=== PATIENT | female | born 1955 ===

== ENCOUNTER 2017-11-14 05:44 | Inpatient (IN) ==
[2017-11-14] MEDS ORDERED: ceFAZolin 1,000 MG VIAL ONE (06:10)
[2017-11-14] MEDS ORDERED: VANCOMYCIN 1,000 MG VIAL ONE (06:10)
[2017-11-14] MEDS ORDERED: VANCOMYCIN INJ 1,000 MG in SODIUM CHLORIDE 0.9% 250 ML IV ONE (06:30)
[2017-11-14] MEDS ORDERED: ceFAZolin 1,000 MG in SYRINGE 1 EACH IV ONE (06:30)
[2017-11-14] MEDS: LACTATED RINGERS 1,000 ML IV SCH (07:00)
[2017-11-14] MEDS ORDERED: DIAZEPAM 5 MG TABLET PO ONE (09:36)
[2017-11-14] MEDS ORDERED: FAMOTIDINE 20 MG TABLET PO ONE (09:36)
[2017-11-14] MEDS ORDERED: TRANEXAMIC ACID 1,000 MG/10 ML VIAL IV ONE (09:39)
[2017-11-14] MEDS ORDERED: FAMOTIDINE 20 MG TABLET ONE (09:50)
[2017-11-14] MEDS ORDERED: DIAZEPAM 5 MG TABLET ONE (09:50)
[2017-11-14] MEDS ORDERED: LACTULOSE 20 GM/30 ML UDCUP PO PRN (09:55)
[2017-11-14] MEDS ORDERED: PROMETHAZINE 25 MG/1 ML VIAL IM PRN (09:55)
[2017-11-14] MEDS ORDERED: BISACODYL 10 MG SUPP RECTAL PRN (09:55)
[2017-11-14] MEDS ORDERED: MAGNESIUM HYDROXIDE SUSP 30 ML UDCUP PO PRN (09:55)
[2017-11-14] MEDS ORDERED: TEMAZEPAM 7.5 MG CAPSULE PO PRN (09:55)
[2017-11-14] MEDS ORDERED: HYDROmorphone 2 MG/1 ML VIAL IV PRN (09:55)
[2017-11-14] MEDS ORDERED: diphenhydrAMINE CAP 25 MG CAPSULE PO PRN (09:55)
[2017-11-14] MEDS ORDERED: NALOXONE 0.4 MG/ML VIAL IV PRN (09:55)
[2017-11-14] MEDS ORDERED: ONDANSETRON 4 MG/2 ML VIAL IV PRN ×2 (09:55→12:07)
[2017-11-14] MEDS ORDERED: ZALEPLON 5 MG CAPSULE PO PRN (09:58)
[2017-11-14] MEDS ORDERED: ROPIVACAINE 0.5% 30 ML VIAL ONE (11:37)
[2017-11-14] MEDS: HYDROmorphone 2 MG/1 ML VIAL IV PRN ×3 (11:50→12:15)
[2017-11-14] MEDS ORDERED: fentaNYL 100 MCG/2 ML VIAL ONE (11:52)
[2017-11-14] MEDS ORDERED: ONDANSETRON 4 MG/2 ML VIAL ONE ×2 (11:53→11:54)
[2017-11-14] MEDS ORDERED: SEVOFLURANE 1 UNIT/15 MINUTE INH ONE (11:53)
[2017-11-14] MEDS ORDERED: MIDAZOLAM 2 MG/2 ML VIAL ONE (11:53)
[2017-11-14] MEDS ORDERED: PROPOFOL 200 MG/20 ML VIAL IV ONE (11:53)
[2017-11-14] MEDS ORDERED: HYDROmorphone PCA 30 MG/30 ML SYRINGE IV ONE (11:53)
[2017-11-14] MEDS ORDERED: HYDROmorphone 2 MG/1 ML VIAL ONE (11:53)
[2017-11-14] MEDS ORDERED: SUCCINYLCHOLINE 200 MG/10 ML VIAL ONE (11:54)
[2017-11-14] MEDS ORDERED: ACETAMINOPHEN 1,000 MG/100 ML VIAL IV ONE (11:54)
[2017-11-14] MEDS ORDERED: ROCURONIUM 100 MG/10 ML VIAL IV ONE (11:54)
[2017-11-14] MEDS: HYDROmorphone PCA 30 MG/30 ML SYRINGE IV SCH (12:00)
[2017-11-14 14:17] LABS: Basophils % 0.3 % (0.0-0.8); Eosinophils % 0.3 % (0.00-10.9); Hematocrit 38.6 VOL% (35.7-47.0); Hemoglobin 13.1 GM/DL (12.0-16.0); Immature Granulocytes % 0.3 %; Immature Granulocytes Absolute 0.04 #; Lymphocytes # 1.1 10*3/uL (1.4-4.0); Mean Corpuscular HGB Conc 33.9 GM/DL (32-36); Mean Corpuscular Hemoglobin 32 PG (27-34); Mean Platelet Volume 10.9 FL (9.6-12.0); Monocytes # 0.4 10*3/uL (0.11-0.8); Monocytes % 3.4 % (1.7-12.7); Neutrophils # 10.3 10*3/uL (1.4-7.4); Neutrophils % 86.7 % (38.7-73.9); Platelet Count 236 T/CUMM (130-400); Red Blood Count 4.15 MC/CUMM (3.8-5.5); Red Cell Distribution Width 12.8 % (9.3-17.3); White Blood Count 11.9 T/CUMM (4-12)
[2017-11-14 14:46] LABS: Calcium 8.7 MG/DL (8.5-10.1); Osmolality,Calculated 278.4 MOS/KG (273-304); Potassium 3.5 MMOL/L (3.5-5.1)
[2017-11-14] MEDS ORDERED: tiZANidine 4 MG TABLET PO PRN (17:02)
[2017-11-14] MEDS: ceFAZolin 1,000 MG in SYRINGE 1 EACH IV SCH (19:04)
[2017-11-14] MEDS ORDERED: tiZANidine 4 MG TABLET PO SCH (21:00)
[2017-11-14] MEDS: CIPROFLOXACIN 500 MG TABLET PO SCH (21:05)
[2017-11-14] MEDS: DOCUSATE SODIUM 100 MG CAPSULE PO SCH (21:05)
[2017-11-14] MEDS: AZELASTINE NASAL 137 MCG/SPRAY 30 ML BOTTLE BOTH NARES SCH (22:05)
[2017-11-14] MEDS: FONDAPARINUX 2.5 MG/0.5 ML SYRINGE SUBCUT SCH (22:05)
[2017-11-15] MEDS: ceFAZolin 1,000 MG in SYRINGE 1 EACH IV SCH (00:12)
[2017-11-15] MEDS: LACTATED RINGERS 1,000 ML IV SCH ×3 (00:13→20:03)
[2017-11-15 05:57] LABS: Basophils % 0.2 % (0.0-0.8); Immature Granulocytes % 0.5 %; Immature Granulocytes Absolute 0.05 #; Red Cell Distribution Width 12.4 % (9.3-17.3)
[2017-11-15 06:17] LABS: Eosinophils # 0.1 10*3/uL (0.0-0.87); Eosinophils % 0.8 % (0.00-10.9); Hematocrit 31.1 VOL% (35.7-47.0); Lymphocytes # 1.4 10*3/uL (1.4-4.0); Lymphocytes % 14.8 % (21.3-54.2); Mean Corpuscular HGB Conc 34.4 GM/DL (32-36); Mean Corpuscular Hemoglobin 32 PG (27-34); Mean Corpuscular Volume 91.7 FL (87-102); Mean Platelet Volume 11.4 FL (9.6-12.0); Monocytes # 0.8 10*3/uL (0.11-0.8); Monocytes % 8.3 % (1.7-12.7); Neutrophils # 7.3 10*3/uL (1.4-7.4); Neutrophils % 75.4 % (38.7-73.9); Platelet Count 217 T/CUMM (130-400); Red Blood Count 3.39 MC/CUMM (3.8-5.5); White Blood Count 9.7 T/CUMM (4-12)
[2017-11-15 06:19] LABS: Osmolality,Calculated 267.2 MOS/KG (273-304); Potassium 3.3 MMOL/L (3.5-5.1)
[2017-11-15 06:26] LABS: Hemoglobin 10.7 GM/DL (12.0-16.0)
[2017-11-15] MEDS: DOCUSATE SODIUM 100 MG CAPSULE PO SCH ×2 (08:14→20:03)
[2017-11-15] MEDS: PREGABALIN 75 MG CAPSULE PO SCH (08:14)
[2017-11-15] MEDS: AZELASTINE NASAL 137 MCG/SPRAY 30 ML BOTTLE BOTH NARES SCH ×2 (08:14→20:03)
[2017-11-15] MEDS: TOLTERODINE LA 4 MG CAPSULE PO SCH (08:14)
[2017-11-15] MEDS: CIPROFLOXACIN 500 MG TABLET PO SCH ×2 (08:14→20:03)
[2017-11-15] MEDS: HYDROmorphone PCA 30 MG/30 ML SYRINGE IV SCH (11:43)
[2017-11-15] MEDS: FONDAPARINUX 2.5 MG/0.5 ML SYRINGE SUBCUT SCH (21:47)
[2017-11-16] MEDS: LACTATED RINGERS 1,000 ML IV SCH (03:39)
[2017-11-16 05:36] LABS: Basophils % 0.2 % (0.0-0.8); Eosinophils # 0.3 10*3/uL (0.0-0.87); Eosinophils % 2.1 % (0.00-10.9); Hematocrit 27.6 VOL% (35.7-47.0); Hemoglobin 9.8 GM/DL (12.0-16.0); Immature Granulocytes % 0.4 %; Immature Granulocytes Absolute 0.05 #; Lymphocytes # 1.5 10*3/uL (1.4-4.0); Lymphocytes % 12.3 % (21.3-54.2); Mean Corpuscular HGB Conc 35.5 GM/DL (32-36); Mean Corpuscular Hemoglobin 32 PG (27-34); Mean Corpuscular Volume 89.6 FL (87-102); Mean Platelet Volume 11.5 FL (9.6-12.0); Monocytes % 8.3 % (1.7-12.7); Neutrophils # 9.3 10*3/uL (1.4-7.4); Neutrophils % 76.7 % (38.7-73.9); Platelet Count 211 T/CUMM (130-400); Red Blood Count 3.08 MC/CUMM (3.8-5.5); Red Cell Distribution Width 12.7 % (9.3-17.3); White Blood Count 12.1 T/CUMM (4-12)
[2017-11-16] MEDS: TOLTERODINE LA 4 MG CAPSULE PO SCH (08:49)
[2017-11-16] MEDS: CIPROFLOXACIN 500 MG TABLET PO SCH ×2 (08:49→20:42)
[2017-11-16] MEDS: AZELASTINE NASAL 137 MCG/SPRAY 30 ML BOTTLE BOTH NARES SCH ×2 (08:50→20:42)
[2017-11-16] MEDS: DOCUSATE SODIUM 100 MG CAPSULE PO SCH ×2 (08:50→20:41)
[2017-11-16] MEDS: PREGABALIN 75 MG CAPSULE PO SCH (08:50)
[2017-11-16] MEDS: FONDAPARINUX 2.5 MG/0.5 ML SYRINGE SUBCUT SCH (22:05)
[2017-11-17 07:24] VITALS: BP 107/60
[2017-11-17] MEDS: CIPROFLOXACIN 500 MG TABLET PO SCH (09:33)
[2017-11-17] MEDS: DOCUSATE SODIUM 100 MG CAPSULE PO SCH (09:33)
[2017-11-17] MEDS: TOLTERODINE LA 4 MG CAPSULE PO SCH (09:33)
[2017-11-17] MEDS: PREGABALIN 75 MG CAPSULE PO SCH (09:33)
[2017-11-17] MEDS: AZELASTINE NASAL 137 MCG/SPRAY 30 ML BOTTLE BOTH NARES SCH (09:34)
== END 2017-11-17 11:15 | disposition home health service (06) | DRG 470 ==
LOC: N.SDSINP 05:44 → N.3E 13:11
PROVIDERS: ADMIT Orthopaedic Surgery; ATTEND Orthopaedic Surgery

== ENCOUNTER 2022-06-07 05:25 | Inpatient (IN) ==
[2022-06-07] MEDS ORDERED: VANCOMYCIN INJ 1,000 MG in SODIUM CHLORIDE 0.9% 250 ML IV ONE (06:00)
[2022-06-07] MEDS ORDERED: propofoL 200 MG/20 ML VIAL IV ONE (06:16)
[2022-06-07] MEDS ORDERED: fentaNYL 100 MCG/2 ML VIAL ONE (06:16)
[2022-06-07] MEDS ORDERED: MIDAZOLAM 2 MG/2 ML VIAL ONE (06:16)
[2022-06-07] MEDS ORDERED: LIDOCAINE 2% 5 ML VIAL ONE (06:16)
[2022-06-07] MEDS ORDERED: DEXAMETHASONE 4 MG/1 ML VIAL ONE (06:24)
[2022-06-07] MEDS ORDERED: ROPIVACAINE 0.5% 30 ML VIAL ONE (06:25)
[2022-06-07] MEDS ORDERED: LIDOCAINE 1% 5 ML VIAL ONE (06:25)
[2022-06-07] MEDS: LACTATED RINGERS 1,000 ML IV SCH ×2 (06:30→08:01)
[2022-06-07 06:37] LABS: INR 0.9; PT Patient Result 10.3 SECS (10.1-12.1); Partial Thromboplastin Time 28.8 SECS (23.7-32.9)
[2022-06-07] MEDS ORDERED: BISACODYL 10 MG SUPP RECTAL PRN (07:05)
[2022-06-07] MEDS ORDERED: TEMAZEPAM 7.5 MG CAPSULE PO PRN (07:05)
[2022-06-07] MEDS ORDERED: diphenhydrAMINE CAP 25 MG CAPSULE PO PRN (07:05)
[2022-06-07] MEDS ORDERED: PROMETHAZINE 25 MG/1 ML VIAL IM PRN (07:05)
[2022-06-07] MEDS ORDERED: MORPHINE 2 MG/1 ML SYRINGE IV PRN ×3 (07:05→07:20)
[2022-06-07] MEDS ORDERED: LACTULOSE 20 GM/30 ML UDCUP PO PRN (07:05)
[2022-06-07] MEDS ORDERED: ONDANSETRON 4 MG/2 ML VIAL IV PRN ×2 (07:05→09:07)
[2022-06-07] MEDS ORDERED: MAGNESIUM HYDROXIDE SUSP 30 ML UDCUP PO PRN (07:05)
[2022-06-07] MEDS ORDERED: LOPERAMIDE 2 MG CAPSULE PO PRN (07:08)
[2022-06-07] MEDS ORDERED: ZOLPIDEM 10 MG PO PRN (07:08)
[2022-06-07] MEDS ORDERED: LORATADINE 10 MG TABLET PO PRN (07:08)
[2022-06-07] MEDS ORDERED: PHENYLEPHRINE 1 MG/10 ML SYRINGE IV ONE (07:28)
[2022-06-07] MEDS ORDERED: ONDANSETRON 4 MG/2 ML VIAL ONE (07:28)
[2022-06-07] MEDS ORDERED: ACETAMINOPHEN INJ 1,000 MG/100 ML VIAL IV ONE (08:04)
[2022-06-07] MEDS ORDERED: KETOROLAC 30 MG/1 ML VIAL ONE (08:05)
[2022-06-07] MEDS ORDERED: SEVOFLURANE 1 UNIT/15 MINUTE INH ONE (08:18)
[2022-06-07] MEDS ORDERED: TRANEXAMIC ACID 1,000 MG/10 ML VIAL ONE (08:39)
[2022-06-07] MEDS ORDERED: HYDROmorphone 1 MG/1 ML SYRINGE ONE (08:44)
[2022-06-07] MEDS: HYDROmorphone 1 MG/1 ML SYRINGE IV PRN ×2 (08:45→09:15)
[2022-06-07] MEDS ORDERED: DOCUSATE SODIUM 100 MG CAPSULE PO SCH (09:00)
[2022-06-07] MEDS ORDERED: hydrALAZINE 20 MG/1 ML VIAL ONE (09:27)
[2022-06-07] MEDS ORDERED: hydrALAZINE 20 MG/1 ML VIAL IV ONE (09:31)
[2022-06-07] MEDS ORDERED: ceFAZolin 1,000 MG VIAL ONE (15:38)
[2022-06-07] MEDS ORDERED: IBUPROFEN 400 MG TABLET PO PRN (16:47)
[2022-06-07] MEDS: AZELASTINE NASAL 137 MCG/SPRAY 30 ML BOTTLE BOTH NARES SCH (18:22)
[2022-06-07] MEDS: DOCUSATE SODIUM 100 MG CAPSULE PO SCH ×2 (18:23→20:51)
[2022-06-07] MEDS: PREGABALIN 75 MG CAPSULE PO SCH ×2 (18:23→20:52)
[2022-06-07] MEDS: FONDAPARINUX 2.5 MG/0.5 ML SYRINGE SUBCUT SCH (20:52)
[2022-06-07] MEDS: tiZANidine 4 MG TABLET PO SCH (20:52)
[2022-06-08] MEDS: AZELASTINE NASAL 137 MCG/SPRAY 30 ML BOTTLE BOTH NARES SCH ×3 (00:12→20:58)
[2022-06-08] MEDS: POLYVINYL 0.5%/POVIDONE 0.6% OPH SOLN 15 ML BOTTLE BOTH EYES PRN ×2 (00:12→20:58)
[2022-06-08] MEDS: LATANOPROST 0.005% OPH SOLN 2.5 ML BOTTLE BOTH EYES SCH ×2 (00:16→23:08)
[2022-06-08 05:54] LABS: Basophils % 0.1 % (0.0-0.8); Eosinophils # 0.1 10*3/uL (0.0-0.87); Eosinophils % 0.6 % (0.00-10.9); Hematocrit 31.7 VOL% (35.7-47.0); Hemoglobin 10.5 GM/DL (12.0-16.0); Immature Granulocytes % 0.4 %; Immature Granulocytes Absolute 0.04 #; Lymphocytes # 2.2 10*3/uL (1.4-4.0); Lymphocytes % 22.6 % (21.3-54.2); Mean Corpuscular HGB Conc 33.1 GM/DL (32-36); Mean Corpuscular Volume 95.5 FL (87-102); Mean Platelet Volume 10.9 FL (9.6-12.0); Monocytes # 0.8 10*3/uL (0.11-0.8); Monocytes % 7.7 % (1.7-12.7); Neutrophils % 68.6 % (38.7-73.9); Platelet Count 238 T/CUMM (130-400); Red Blood Count 3.32 MC/CUMM (3.8-5.5); Red Cell Distribution Width 12.4 % (9.3-17.3); White Blood Count 9.9 T/CUMM (4-12)
[2022-06-08 06:19] LABS: Calcium 8.6 MG/DL (8.5-10.1); Osmolality,Calculated 278.5 MOS/KG (273-304)
[2022-06-08] MEDS ORDERED: ACETAMINOPHEN 325 MG TABLET PO PRN (07:06)
[2022-06-08] MEDS: PREGABALIN 75 MG CAPSULE PO SCH ×2 (08:00→20:57)
[2022-06-08] MEDS: DOCUSATE SODIUM 100 MG CAPSULE PO SCH ×2 (08:00→20:57)
[2022-06-08] MEDS: FONDAPARINUX 2.5 MG/0.5 ML SYRINGE SUBCUT SCH (20:58)
[2022-06-08] MEDS: tiZANidine 4 MG TABLET PO SCH (20:58)
[2022-06-09 07:49] VITALS: BP 115/87
[2022-06-09] MEDS: AZELASTINE NASAL 137 MCG/SPRAY 30 ML BOTTLE BOTH NARES SCH (08:04)
[2022-06-09] MEDS: DOCUSATE SODIUM 100 MG CAPSULE PO SCH (08:05)
[2022-06-09] MEDS: PREGABALIN 75 MG CAPSULE PO SCH (08:05)
== END 2022-06-09 11:44 | disposition home health service (06) | DRG 470 ==
LOC: N.OR 05:25 → N.SDSINP 05:28 → N.3E 16:31
PROVIDERS: ADMIT Orthopaedic Surgery; ATTEND Orthopaedic Surgery